=== PATIENT | male | born 1970 | race American Indian/Alaskan Native ===

== ENCOUNTER 2016-11-03 15:26 | Emergency (ER) | payer OTHER ==
[2016-11-03] MEDS ORDERED: GEODON IM ONE ×2 (15:27→15:35)
[2016-11-03] MEDS ORDERED: WATER FOR INJ (PF) 10 ML ONE (15:27)
[2016-11-03 16:01] LABS: Urine Drugs of Abuse Note Disclamer
--- NOTE | 2016-11-03 16:20 | Emergency Department Report ---
HPI - General Chief Complaint: Psych Time Seen by Provider: 11/03/16 16:05 - HPI HPI: The patient is a 46-year-old male who presents via law force met for evaluation of mental health. The patient reports constant and severe sadness and hallucinations for greater than the past one day, exacerbated with alcohol consumption. He states that he has been experiencing voices instructing him to cut people's toes off and kill them. Per law enforcement the patient was agitated on scene and required tazing to restrain the patient. The patient denies fever, headache, chest pain, dyspnea, unexplained weight loss or weight gain, heat or cold intolerance, skin, hair, or nail changes, neuro deficits. ED Past Medical Hx - Past Medical History Previous Medical History?: Yes Additional medical history: ptsd - Surgical History Past Surgical History?: No - Social History Smoking Status: Current Every Day Smoker Substance Use Type: Alcohol, Cocaine, Heroin, Marijuana - Medications Home Medications: Home Medications Medication Instructions Recorded Confirmed Last Taken Type Unobtainable 11/03/16 11/03/16 Unknown History ED Review of Systems ROS: Stated complaint: MH EVAL Other details as noted in HPI Constitutional: denies: fever ENT: denies: throat or neck pain Respiratory: denies: cough, shortness of breath Cardiovascular: denies: chest pain Endocrine: denies unexplained weight loss or gain Gastrointestinal: denies: abdominal pain, nausea Genitourinary: denies: dysuria Musculoskeletal: denies: leg swelling Skin: denies: rash Neurological: denies: headache Hematological/Lymphatic: denies: easy bleeding or easy bruising Psych: reports sadness and hallucinations Physical Exam - Physical Exam Vital Signs: Vital Signs 11/03/16 15:48 Temperature 98.6 F Pulse Rate 140 H Respiratory 24 Rate O2 Sat by Pulse 95 Oximetry Physical Exam: General: well-nourished, well-developed, no acute distress Head: Normocephalic, atraumatic Eyes: normal sclera ENT: Mucous membranes are pale and dry Neck: No neck stiffness, no cervical adenopathy Respiratory: Breath sounds equal bilaterally, no wheezing, rales, or rhonchi Cardio: S1 and S2 present, no murmurs, rubs, gallops, capillary refill is delayed Abdomen: Normoactive bowel sounds, soft abdomen, no rigidity, no guarding or rebound tenderness Musc: tazer electrode stuck to patient left hand 1st dorsal web space Skin: No rash Neuro: no facial drooping, normal speech Psych: flat affect, patient delusional, poor insight ED Course Vital Signs 11/03/16 15:48 Temperature 98.6 F Pulse Rate 140 H Respiratory 24 Rate O2 Sat by Pulse 95 Oximetry ED Medical Decision Making - Lab Data Result diagrams: 11/03/16 15:59 11/03/16 16:03 - Medical Decision Making The patient was seen and examined by myself. The patient is placed on a cardiac/vascular sonographer and continuous pulse ox. On initial evaluation, the patient was found to be in no distress. Tazer dart is removed form the patient's left hand using lidocaine. Labs are obtained. Lab results reveal elevated EtOH level of 0.3, and elevated RBC, hemoglobin, and hematocrit, consistent with hemoconcentration and exam findings of dehydration, and otherwise labs were grossly unremarkable. The patient is given a banana bag infusion for treatment of dehydration. The patient is medically clear. Mental health is consulted. Mental health evaluates the patient and agrees that the patient is at risk of harming others. A 1013 is completed. The patient will be admitted to a psychiatric facility once bed placement is obtained. Critical care attestation.: If time is entered above; I have spent that time in minutes in the direct care of this critically ill patient, excluding procedure time. ED Disposition Clinical Impression: Dehydration, Homicidal ideations, Acute psychosis Alcohol intoxication Qualifiers: Complication of substance-induced condition: with unspecified complication Qualified Code(s): F10.129 - Alcohol abuse with intoxication, unspecified Disposition: DC/TX PSY HOSP/PSY UNIT Is pt being admited?: No Does the pt Need Aspirin: No Condition: Stable Referrals: PRIMARY CARE, [Primary Care Provider] - 3-5 Days Time of Disposition: 16:21
[2016-11-03 16:23] LABS: Basophils % (Auto) 0.5 % (0.0-1.8); Eosinophils % (Auto) 0.9 % (0.0-4.3); Hematocrit 50.7 % (35.5-45.6); Mean Corpuscular HGB Conc 33 % (32-34); Mean Corpuscular Hemoglobin 30 pg (28-32); Mean Corpuscular Volume 91 fl (84-94); Platelet Count 254 K/mm3 (140-440); Red Blood Count 5.59 M/mm3 (3.65-5.03); Red Cell Distribution Width 15.3 % (13.2-15.2); White Blood Count 6.1 K/mm3 (4.5-11.0)
[2016-11-03 16:34] LABS: Bilirubin,Urine NEG (Negative); Blood,Urine SM (Negative); Ketones,Urine NEG (Negative); Leukocyte Esterase,Urine NEG (Negative); Mucus,Urine FEW /HPF; Nitrite,Urine NEG (Negative); Urobilinogen,Urine < 2.0 mg/dL (<2.0)
[2016-11-03] MEDS ORDERED: XYLOCAINE 2% INFILTRATI ONE ×2 (16:34→17:02)
[2016-11-03 16:35] LABS: Anion Gap 22 mmol/L; BUN/Creatinine Ratio 12.22; Blood Urea Nitrogen 11 mg/dL (9-20); Calcium 9.1 mg/dL (8.4-10.2); Carbon Dioxide 21 mmol/L (22-30); Chloride 99.8 mmol/L (98-107); Glucose 100 mg/dL (75-100); Potassium 3.6 mmol/L (3.6-5.0); Sodium 139 mmol/L (137-145)
[2016-11-03] MEDS ORDERED: NACL 0.9% 1000 ML 1,000 ML IV ONE (16:46)
[2016-11-03] MEDS: NACL IV ONE ×2 (17:57→19:01)
[2016-11-03] MEDS: INFUVITE IV ONE ×2 (17:57→19:01)
[2016-11-03] MEDS: FOLVITE IV ONE ×2 (17:57→19:01)
[2016-11-03] MEDS: VITAMIN B1 IV ONE ×2 (17:57→19:01)
[2016-11-03] MEDS ORDERED: MILK OF MAGNESIA PO PRN (21:12)
[2016-11-03] MEDS ORDERED: ALUM-MAG HYDROX-SIMETH 200-200-20MG/5ML PO PRN (21:12)
[2016-11-04] MEDS ORDERED: ATIVAN PO PRN (03:00)
--- NOTE | 2016-11-04 06:07 | Event Note ---
Date: 11/04/16 Vital signs reviewed. Patient awaiting psychiatric placement. Vital Signs 11/03/16 11/03/16 11/03/16 15:48 16:40 17:45 Temperature 98.6 F Pulse Rate 140 H 104 H 94 H Respiratory 24 18 16 Rate Blood Pressure 91/55 101/58 [Left] O2 Sat by Pulse 95 98 95 Oximetry 11/04/16 11/04/16 05:08 05:36 Temperature 98.8 F 98.7 F Pulse Rate 88 77 Respiratory 15 12 Rate Blood Pressure 132/78 134/78 [Left] O2 Sat by Pulse Oximetry
[2016-11-04] MEDS: TYLENOL PO PRN (06:50)
[2016-11-04] MEDS: ATIVAN PO PRN (21:13)
--- NOTE | 2016-11-05 04:55 | Event Note ---
Date: 11/05/16 Vital signs reviewed. Awaiting psychiatric placement. Vital Signs 11/03/16 11/03/16 11/03/16 15:48 16:40 17:45 Temperature 98.6 F Pulse Rate 140 H 104 H 94 H Respiratory 24 18 16 Rate Blood Pressure 91/55 101/58 [Left] O2 Sat by Pulse 95 98 95 Oximetry 11/04/16 11/04/16 11/04/16 05:08 05:36 12:55 Temperature 98.8 F 98.7 F 98 F Pulse Rate 88 77 72 Respiratory 15 12 18 Rate Blood Pressure 132/78 134/78 135/70 [Left] O2 Sat by Pulse 99 Oximetry 11/04/16 19:00 Temperature 98 F Pulse Rate 74 Respiratory 16 Rate Blood Pressure 128/68 [Left] O2 Sat by Pulse 100 Oximetry
[2016-11-05] MEDS: TYLENOL PO PRN (22:43)
[2016-11-06] MEDS: TYLENOL PO PRN (22:04)
[2016-11-07] MEDS: TYLENOL PO PRN ×2 (02:12→14:12)
--- NOTE | 2016-11-07 13:42 | Emergency Department Report ---
Blank Doc - Documentation Documentation: Medical record reviewed. Vital signs remained stable. Nurses notes reviewed and patient has remained cooperative without new complaints during ED visit.
[2016-11-08] MEDS: TYLENOL PO PRN ×2 (12:05→22:44)
[2016-11-09 08:26] VITALS: BP 154/95
[2016-11-09] MEDS: TYLENOL PO PRN (09:34)
[2016-11-09] MEDS ORDERED: ATIVAN IV PRN (17:14)
--- NOTE | 2016-11-09 17:18 | Emergency Department Report ---
Blank Doc - Documentation Documentation: Nursing notes and vital signs were reviewed. Discussed with nursing staff. Patient is cooperative and has been accepted. Patient awaiting bed assignment.
--- NOTE | 2016-11-10 05:45 | Event Note ---
Date: 11/10/16 Vital signs reviewed. No recent events. Awaiting psychiatric placement. Vital Signs 11/03/16 11/03/16 11/03/16 15:48 16:40 17:45 Temperature 98.6 F Pulse Rate 140 H 104 H 94 H Respiratory 24 18 16 Rate Blood Pressure 91/55 101/58 [Left] O2 Sat by Pulse 95 98 95 Oximetry 11/04/16 11/04/16 11/04/16 05:08 05:36 12:55 Temperature 98.8 F 98.7 F 98 F Pulse Rate 88 77 72 Respiratory 15 12 18 Rate Blood Pressure 132/78 134/78 135/70 [Left] O2 Sat by Pulse 99 Oximetry 11/04/16 11/05/16 11/05/16 19:00 12:00 19:31 Temperature 98 F 98.3 F Pulse Rate 74 67 Respiratory 16 18 18 Rate Blood Pressure 128/68 128/91 [Left] O2 Sat by Pulse 100 98 Oximetry 11/05/16 11/05/16 11/05/16 20:52 22:43 22:50 Temperature 98.2 F Pulse Rate 77 76 Respiratory 20 20 20 Rate Blood Pressure 140/101 147/96 [Left] O2 Sat by Pulse 95 95 Oximetry 11/06/16 11/06/16 11/07/16 14:35 22:00 09:45 Temperature 98.4 F 98.5 F 98.5 F Pulse Rate 80 84 98 H Respiratory 18 18 18 Rate Blood Pressure 107/79 140/90 116/78 [Left] O2 Sat by Pulse 98 99 99 Oximetry 11/07/16 11/08/16 11/08/16 22:00 08:30 09:05 Temperature 97.9 F 98.3 F Pulse Rate 70 76 Respiratory 18 16 16 Rate Blood Pressure 131/70 139/81 [Left] O2 Sat by Pulse 99 98 98 Oximetry 11/08/16 11/08/16 11/09/16 12:05 22:00 07:25 Temperature 98.5 F 97.8 F Pulse Rate 79 61 Respiratory 16 18 20 Rate Blood Pressure 130/81 154/95 [Left] O2 Sat by Pulse 96 99 Oximetry 11/09/16 11/09/16 08:29 09:34 Temperature Pulse Rate Respiratory 18 20 Rate Blood Pressure [Left] O2 Sat by Pulse 99 Oximetry
[2016-11-10] MEDS: ATIVAN PO PRN (07:27)
== END 2016-11-10 10:22 ==
LOC: EEVIPCON 15:26 → ED 15:26
DX: F10.129 Alcohol abuse with intoxication, unspecified (principal); F23 Brief psychotic disorder; E86.0 Dehydration; F43.10 Post-traumatic stress disorder, unspecified; F17.200 Nicotine dependence, unspecified, uncomplicated; F12.90 Cannabis use, unspecified, uncomplicated; F14.90 Cocaine use, unspecified, uncomplicated
CPT/HCPCS: 36415; 80048; 80307; 81001; 85025; 96361; 96365; 96372; 99285; G0480; J3411; J3486; J7030; 80320